=== PATIENT | female | born 1950 | race American Indian/Alaskan Native ===

== ENCOUNTER 2024-12-10 15:34 | Emergency (ER) | payer MEDICARE, MEDICAID, SELFPAY ==
[2024-12-10 15:35] VITALS: BMI 23.8
--- NOTE | 2024-12-10 15:35 | PC.NURSE ---
PT BIB [facility] , TIME OF ARRIVAL 1535; PER EMS REPORT, PT FOUND DOWN AND UNRESPONSIVE BY FAMILY FOR APPROXIMATELY 30 MINUTES. UPON EMS ARRIVAL, PT ASYSTOLE ON MONITOR. PT RECEIVED 8 ROUNDS OF EPINEPHRINE EN ROUTE VIA IO ON R LOWER LEG. PT INTUBATED WITH IGEL. PT'S END TIDAL CO2 OF 16. PT HX OF DIALYSIS. UPON ARRIVAL TO ED BED, DR. SUAREZ AT BEDSIDE. PT CONNECTED TO MONITORS. DR. SUAREZ CALLED PT'S TIME OF AT 1535.
--- NOTE | 2024-12-10 15:39 | PC.NURSE ---
SPOKE TO [employer] ([id number]) & REPORTED PT'S TIME OF .
--- NOTE | 2024-12-10 15:52 | PD.EDCPR ---
ED CPR RME/HPI General Chief Complaint: Cardiac Arrest/CPR Stated Complaint: CARDIAC ARREST Time Seen by Provider: 12/10/24 15:39 Arrival date/time: 12/10/24 15:34 RME / HPI RME / HPI narrative: 74 year old female presents to the ED BIBA from home as a code blue. Per medics report, family found the patient down and unresponsive. On their arrival patient had been down for approximately 30 minutes prior to their arrival and noted to be asystole. CPR was initated and given a total of 8 rounds of epinephrine. Patient was intubated with i-gel on the field. On arrival to ED, CPR in progress and patient had been given 8 rounds of epinephrine via right tibia I.O. On pulse check patient remains asystole on the monitor, no pulses. I later spoke with family who reported the patient received her dialysis 2 days ago Tuesday without any issues/complaints. State today the patient was in the shower and noticed water coming through the bottom of the bathroom door. State they found the patient on the floor, unresponsive, and son immediately began CPR which he reports feeling ribs crack. Related Data Home Medications ?Medication ?Instructions ?Recorded ?Confirmed losartan 50 mg tablet 50 mg PO QDAY 09/22/21 02/29/24 apixaban 2.5 mg tablet (Eliquis) 2.5 mg PO BID 01/12/22 02/29/24 tamoxifen 20 mg tablet 20 mg PO QDAY 09/07/23 02/29/24 amlodipine 10 mg tablet 10 mg PO DAILY 02/21/24 02/29/24 levetiracetam 500 mg tablet 750 mg PO BID 02/21/24 02/29/24 (Keppra) patiromer calcium sorbitex 8.4 8.4 g PO QDAY 02/21/24 02/29/24 gram oral powder packet (Veltassa) sevelamer carbonate 800 mg tablet 800 mg PO TID 02/21/24 02/29/24 atorvastatin 20 mg tablet 20 mg PO QPM 02/29/24 02/29/24 diltiazem HCl 30 mg tablet 30 mg PO TID 02/29/24 02/29/24 (Cardizem) hydralazine 50 mg tablet 50 mg PO DAILY 02/29/24 02/29/24 timolol maleate 0.25 % eye drops 1 drp ophthalmic (eye) BID 02/29/24 02/29/24 travoprost 0.004 % eye drops 1 drp ophthalmic (eye) QPM 02/29/24 02/29/24 (Travatan Z) Previous Rx's ?Medication ?Instructions ?Recorded cephalexin 500 mg capsule 500 mg PO BID #14 caps 04/25/24 Allergies Allergy/AdvReac Type Severity Reaction Status Date / Time No Known Allergies Allergy Verified 08/16/24 10:30 Review of Systems Review of Systems ROS Unobtainable: due to endotracheal tube (presented as a code blue ) Past Medical History Past Medical History NEUROLOGIC: Positive Cerebrovascular Accident, Seizures, Shane's Palsy and Head Trauma CARDIAC: Positive Cardiac Disorders, Atrial Fibrillation, Hypercholesterolemia and Hypertension RESPIRATORY: Positive Chronic Obstructive Pulmonary Disease (COPD) (home o2 at night), Asthma, Pneumonia and Intubation (Previously tracheostomy) GENITOURINARY: Positive Genitourinary Disorders, Renal Disease, Kidney Stones and Dialysis REPRODUCTIVE: Positive Previous Pregnancies ENT: Positive Cataracts, Glaucoma and Head Trauma ENDOCRINE: Positive Endocrine Disorders and Diabetes Mellitus Type 2 HEMATOLOGIC: Positive Blood Disorders and Anemia OTHER HISTORY: Positive Hospitalization, Falls, Chemotherapy, Radiation Therapy, Chicken Pox, Measles and Cancer Family History FAMILY HISTORY: Positive Family Cancer and Family Surgery Surgical History SURGICAL: Positive Tracheostomy, Gastrostomy and Mastectomy Social History SMOKING STATUS: Never smoker ED Exam Narrative Physical exam: GEN. APPEARANCE: Patient arrived with no signs of life, in cardiac-respiratory arrest with CPR in progress, bagged through i-gel via bag valve mask. VITALS: Unobtainable. HEENT: Normocephalic, atraumatic, no spontaneous eye movements. NECK: Supple, no JVD, no mass. CARDIOVASCULAR: No spontaneous cardiac activity, CPR in progress. asystole on pulse check. ABDOMEN: Soft, mildly distended. EXTREMITIES: Flaccid. No edema. No signs of trauma. SKIN: Cool and dry, no rashes noted. No signs of trauma. NEURO: GCS is 3. Course Course Course Narrative: Time of 15:35 hours. Quality Measures none Cardiac Arrest / CPR MDM Narrative MDM Narrative:: Yulisa Mehta am scribing for and in the presence of Dr. Burden. Patient data External records reviewed:: [facility] previous records (I reviewed ED visit on 08/16/2024 ) and EMS form Clinical information provided by:: EMS Social determinants that could affect healthcare access:: none Patient has the following chronic illnesses:: Per EMR review, the patient has history of CVA, Shane's palsy, ICH s/p craniotomy, seizures, hypertension, AFib, type 2 diabetes, ESRD on HD T/Th/Sat How is presenting disease/condition affected by chronic disease/condition?: exacerbated by Evaluation data The following diagnostics were reviewed and interpreted by me:: other (specify) (No diagnostic labs were performed ) Lab and/or radiology exams considered but not ordered:: None Interpretation Summary: No diagnostic labs were performed Medications / Prescriptions Medications or Prescriptions considered but not ordered:: None Medication administrations:: None Consultations Consultation(s) initiated? (list below): No Diagnosis Cardiac arrest differential diagnosis: acute massive pulmonary embolism, acute respiratory failure, acute myocardial infarction, cardiac arrest and sudden cardiac Most likely diagnosis given after review of the tests above:: Cardiac arrest Admission Indicated Admission indicated?: not indicated Explain why admission is indicated or not indicated:: Patient Admission Request Was there a request for admission?: No Disposition Plan Disposition Plan: other (specify) () Discharge Plan Plan Patient Disposition: Prescriptions/Referrals Referrals: No Primary/Family,Physician [Primary Care Provider] - In 1 week Problem List Clinical Impression: Cardiopulmonary arrest Patient/Caregiver Discharge Instructions Print Language: Luxembourgish
--- NOTE | 2024-12-10 16:58 | PC.SS ---
ASW provided emotional support for patient's family. Family at bed side to see the patient.
--- NOTE | 2024-12-10 17:47 | PC.NURSE ---
SPOKE TO AISSATOU FROM [facility] [employer] AND RN INFORMED THAT STAFF FROM HOME WILL BE ARRIVING TO [facility] ED TO COMPLIANCE REVIEW OFFICER PT IN ABOUT AN HOUR. PT'S SON, CHERELLE HEAD AND BROTHER, SUAD, MADE AWARE BY RN AND THEY ACCEPTED.
== END 2024-12-10 19:30 | disposition expired ==
PROVIDERS: Emergency Provider Emergency Medicine
DX: I46.9 Cardiac arrest, cause unspecified (principal)
CPT/HCPCS: 99285